=== PATIENT | female | born 1945 ===

== ENCOUNTER 2017-02-14 08:05 | Day surgery (SDC) | payer MEDICARE ==
[2017-02-14] MEDS ORDERED: Lactated Ringer's 500 ML IV ONE (09:03)
[2017-02-14] MEDS ORDERED: Propofol 10 mg/ml Inj (20 ML) ONE ×2 (09:45→10:54)
[2017-02-14] MEDS ORDERED: Midazolam 2 MG/2 ML VIAL ONE (09:45)
[2017-02-14 11:16] VITALS: TEMP 96.9
[2017-02-14 11:23] VITALS: BP 111/61; PULSE 65; RESP 20; O2SAT 99
== END 2017-02-14 11:45 | disposition home or self-care (01) ==
LOC: H.ENDO 08:05
PROVIDERS: ATTEND Internal Medicine Gastroenterology
DX: K29.50 Unspecified chronic gastritis without bleeding (principal); B96.81 Helicobacter pylori [H. pylori] as the cause of diseases classified elsewhere; D50.9 Iron deficiency anemia, unspecified; K44.9 Diaphragmatic hernia without obstruction or gangrene; K31.9 Disease of stomach and duodenum, unspecified; K57.30 Diverticulosis of large intestine without perforation or abscess without bleeding; K64.8 Other hemorrhoids
CPT/HCPCS: 43239; 45378; 88305; J2001; J2250; J2704; J7120